=== PATIENT | male | born 2000 | race Caucasian/White ===

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

== ENCOUNTER 2019-10-03 23:20 | Emergency (ER) | payer BC, OTHER ==
[~2019-10-03] VITALS: Ht 182.9 cm; Wt 70.2 kg
[2019-10-03] MEDS ORDERED: BUPR150T3 (23:26)
[2019-10-04] MEDS ORDERED: ATIV2TAB PO (00:51)
[2019-10-04] MEDS ORDERED: LORazepam 2 MG TAB PO ONE (01:00)
[2019-10-04 01:13] VITALS: BP 152/68
[2019-10-04] MEDS ORDERED: METAL LOCK LOOP XX ONE (01:32)
== END 2019-10-04 01:46 | disposition home or self-care (01) ==
LOC: M ED 23:20
DX: R42 Dizziness and giddiness (principal); T43.295A Adverse effect of other antidepressants, initial encounter; F41.1 Generalized anxiety disorder; Z79.899 Other long term (current) drug therapy

== ENCOUNTER → 2019-11-12 | Outpatient (CLI) | payer BC, OTHER ==
[~2019-11-12] MED LIST: ATIV2TAB PO; BUPR150T3
--- NOTE | 2019-11-12 15:41 | REP ---
INDICATION: Dysphasia PROCEDURE: Plain film neck COMPARISON STUDIES: No prior similar studies FINDINGS: On the lateral views, oropharynx, nasopharynx, hypopharynx and larynx appear unremarkable. No evidence of radiopaque foreign body. Cervical spinal alignment within normal limits. There is only minimal degenerative change. Craniovertebral junction appears unremarkable. CONCLUSION: No acute findings. No definite abnormality identified. Electronically Signed by Aime Gordon MD 11/12/2019 03:33 P
== END ==
LOC: M LRY 14:38
PROVIDERS: ATTEND Physician Assistant Medical
DX: R13.10 Dysphagia, unspecified (principal)